=== PATIENT | female | born 1995 | race Caucasian/White ===

== ENCOUNTER 2017-10-12 09:54 | Emergency (ER) | payer OTHER, SELFPAY ==
--- NOTE | 2017-10-12 09:57 | ED.UPPEXIN ---
HPI - Extremity Injury (Upper) General Chief Complaint: Extremity Injury, Upper Stated Complaint: LEFT SHOULDER PAIN Time Seen by Provider: 10/12/17 09:56 Source: patient Mode of arrival: ambulatory Limitations: no limitations History of Present Illness HPI narrative: 22-year-old female here for evaluation of left upper back, left shoulder pain and tingling down her left arm. Patient states that it started last evening. She states that it woke her up from her sleep. No specific trauma. Has had left clavicle surgery in the past with a plate that had been placed and then subsequent removal. States that the pain is in her left upper back when she turns her head to the side. No skin changes. No fevers. No problems breathing. Related Data Previous Rx's Medication Instructions Recorded cyclobenzaprine 10 mg PO TID PRN #10 tab 10/12/17 Allergies Allergy/AdvReac Type Severity Reaction Status Date / Time No Known Drug Allergies Allergy Verified 10/12/17 10:00 Review of Systems Constitutional Denies chills and Denies fever(s) Cardiovascular Denies chest pain and Denies dyspnea Respiratory Denies dyspnea Gastrointestinal Gastrointestinal: Denies abdominal pain Musculoskeletal Comments: Left upper back left shoulder pain Integumentary/Breasts Denies rash Neurologic Comments: Tingling down the left arm Hematologic/Lymphatic Denies easy bleeding and Denies easy bruising [facility] Medical History Closed left clavicular fracture (Acute) Healthy adult (Acute) Surgical History No pertinent past surgical history (Acute) Social History Smoking Status: Never smoker Exam Initial Vital Signs Initial Vital Signs: Vital Signs Temperature 99.5 F 10/12/17 10:00 Pulse Rate 75 10/12/17 10:00 Respiratory Rate 16 10/12/17 10:00 Blood Pressure 120/83 H 10/12/17 10:00 Pulse Oximetry 100 10/12/17 10:00 Const General: cooperative, healthy appearing, comfortable, well developed, well groomed and No acute distress Orientation: alert, awake and oriented x3 HENMT Head: normal to inspection, normocephalic and atraumatic Resp Effort & Inspection: normal respiratory effort Auscultation: clear to auscultation bilaterally Cardio Rate: regular rate Rhythm: regular rhythm Back/Spine/Pelvis Other: Patient with minimal tenderness to palpation over the left rhomboids and left levator scapula. Skin Lesions: no lesions Rashes: no rashes Neuro Other: Able to reproduce the tingling in the left arm with the Spurling's maneuver to the left Extrem General: normal to inspection, full ROM and capillary refill normal Psych Appearance: grossly normal and well kempt Course Vital Signs - 8 hr 10/12/17 10:00 Temperature 99.5 F Pulse Rate 75 Respiratory Rate 16 Blood Pressure 120/83 H Pulse Oximetry 100 MDM - Extremity Injury (Upper) MDM Narrative Medical decision making narrative: Patient is neurovascularly intact. No gross deformities. I suspect that her symptoms today are musculoskeletal. Will hold on any x-rays. Patient did state that the tingling in her left arm is not new and that has been going on since her left clavicular surgeries. No skin changes concerning for zoster. We did discuss ice and massage on anti-inflammatories. Will give her prescription for muscle relaxers. She was given return precautions. She expressed understanding and agreement with plan. Discharge Plan Departure Patient Disposition: Home Clinical Impression: Muscle strain of left shoulder Instructions: Muscle Strain, How To Perform RICE (Rest, Ice, Compress, Elevate) Activity Restrictions/Additional Instructions: I suspect the symptoms in her shoulder musculoskeletal. Recommend massage and heat/ice and anti-inflammatories. Return to the emergency department for any new or worsening symptoms Prescriptions: New cyclobenzaprine 10 mg tablet 10 mg PO TID PRN (Reason: muscle spasm) Qty: 10 RF: 0
[2017-10-12 10:00] VITALS: BP 120/83; PULSE 75; RESP 16; TEMP 37.5; O2SAT 100; BMI 20.2
== END 2017-10-12 10:28 | disposition home or self-care (01) ==
LOC: ED 10:29
PROVIDERS: Emergency Provider Emergency Medicine
DX: M25.512 Pain in left shoulder (principal)
CPT/HCPCS: 99282

== ENCOUNTER → 2017-12-13 09:32 | Outpatient (CLI) | payer OTHER, SELFPAY ==
--- NOTE | 2017-12-13 | DI.MRI.S_ITS ---
PROCEDURE: MR KNEE LT WO CON INDICATIONS: LEFT KNEE PAIN TECHNIQUE: Noncontrast sagittal PD fast spin echo and T2 fast spin echo with fat saturation, sagittal 3-D FLASH with fat saturation; coronal T1 spin echo and PD fast spin echo with fat saturation, and axial PD fast spin echo with fat saturation through the knee. COMPARISON: None. FINDINGS: Image quality: Excellent. Menisci: The medial and lateral menisci demonstrate normal morphology and internal signal. The meniscal root ligaments appear intact. Cruciate ligaments: The anterior and posterior cruciate ligaments appear intact. Medial structures: The medial collateral ligament appears intact. The posterior oblique ligament, semimembranosus tendon insertions, oblique popliteal ligament, and meniscocapsular junction appear intact. Visualized portions of the pes anserinus tendons appear normal. No abnormal bursal fluid. Lateral structures: The lateral collateral ligament, long and short heads of the biceps femoris tendon appear intact. The popliteus tendon appears normal; the popliteofibular ligament appears intact. The posterosuperior and anteroinferior popliteomeniscal fascicles appear intact. The arcuate and fabellofibular ligaments appear intact, on either side of the lateral inferior geniculate artery. Iliotibial band appears normal. Anterior structures: The quadriceps and patellar tendons appear intact. Patellar alignment is normal. No femoral trochlear dysplasia or ventral trochlear prominence. There is mild superolateral edema seen within Hoffa's fat pad. Bones and cartilage: No bone marrow contusions or fractures. The cartilage of the medial and lateral femorotibial compartments appears normal in thickness. There is mild intrasubstance signal change involving the colon overlying the lateral patellar facet Joint space: Minimal trace fluid between the semimembranosus medial gastrocnemius tendons no definite formed No Mota's cyst. Normal appearing synovial plicae are incidentally noted. IMPRESSION: Mild soft tissue edema involving the superolateral aspect of Hoffa's fat pad raising possibility of patellofemoral tracking abnormality. Please correlate clinically. Mild patellofemoral chondromalacia. Elsewhere, no internal derangement. Dictated by: Tristian Gregory M.D. on 12/13/2017 at 12:26 Approved by: Tristian Gregory M.D. on 12/13/2017 at 12:31
== END ==
PROVIDERS: Visit Provider Radiology Diagnostic Radiology
DX: M25.562 Pain in left knee (principal); M22.42 Chondromalacia patellae, left knee; R60.0 Localized edema
CPT/HCPCS: 73721